=== PATIENT | female | born 1995 | race African-American/Black ===

== ENCOUNTER 2016-07-07 05:05 | Emergency (ER) | payer OTHER ==
[~2016-07-07] VITALS: Ht 142.2 cm; Wt 55.0 kg
[2016-07-07 05:08] VITALS: BP 150/91; PULSE 112; RESP 16; TEMP 98.2; O2SAT 99
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
== END 2016-07-07 08:44 | disposition left against medical advice (07) ==
LOC: NEPC 05:05
DX: T76.21XA Adult sexual abuse, suspected, initial encounter (principal)
CPT/HCPCS: 99284